=== PATIENT | male | born 1995 | race Caucasian/White ===

== ENCOUNTER 2022-03-31 13:41 | Emergency (ER) | payer MEDICAID ==
[~2022-03-31] VITALS: Ht 170.2 cm; Wt 73.0 kg
[2022-03-31 13:44] VITALS: BP 152/90
[2022-03-31] MEDS ORDERED: AM250 MT (15:22)
[2022-03-31] MEDS ORDERED: AMOXICILLIN 500 MG CAPSULE PO ONE (15:30)
[2022-03-31] MEDS ORDERED: IBUPROFEN 600MG TABLET PO ONE (16:00)
== END 2022-03-31 16:03 | disposition home or self-care (01) ==
LOC: ER 13:41
DX: H66.91 Otitis media, unspecified, right ear (principal)
CPT/HCPCS: 99283